=== PATIENT | female | born 1960 | race Caucasian/White ===

== ENCOUNTER 2022-07-29 07:34 | Outpatient (CLI) | payer BC ==
[~2022-07-29] VITALS: Ht 165.1 cm; Wt 84.1 kg
[2022-07-29 09:26] LABS: BILIRUBIN,URINE NEGATIVE (NEGATIVE); CLARITY,URINE CLEAR; COLOR,URINE YELLOW; GLUCOSE, URINE (UA) NEGATIVE (NEGATIVE); KETONES,URINE NEGATIVE (NEGATIVE); LEUKOCYTE ESTERASE ,URINE 1+ (NEGATIVE); NITRITE,URINE NEGATIVE (NEGATIVE); PROTEIN,URINE NEGATIVE (NEGATIVE)
[2022-07-29] MEDS ORDERED: OMEP20CA18 PO (09:31)
[2022-07-29] MEDS ORDERED: APIX5TAB PO (09:31)
[2022-07-29] MEDS ORDERED: CETI10CA PO (09:31)
[2022-07-29] MEDS ORDERED: PSYL0.4C2 PO (09:31)
[2022-07-29] MEDS ORDERED: BACI1CAP6 PO (09:31)
[2022-07-29] MEDS ORDERED: FLEC50TA PO (09:31)
[2022-07-29] MEDS ORDERED: CYCL10TA25 PO (09:31)
[2022-07-29] MEDS ORDERED: MELA10TA20 PO (09:31)
[2022-07-29] MEDS ORDERED: ACET-168 PO (09:34)
[2022-07-29 09:52] LABS: BACTERIA,URINE FEW /HPF; RBC,URINE RARE /HPF; WBC,URINE RARE /HPF
[2022-07-29] MEDS ORDERED: RT-ALBUINH INH (09:54)
[2022-07-29 09:59] VITALS: BP 135/75
[2022-07-29 10:42] LABS: BASOPHILS % (AUTO) 1 % (0-10); EOSINOPHILS # (AUTO) 0.1 10^3/uL (0.0-0.3); EOSINOPHILS % (AUTO) 1 % (0-10); HEMATOCRIT 41 % (35-52); HEMOGLOBIN 13.8 g/dL (11.5-16.0); LYMPHOCYTES # (AUTO) 2.1 10^3/uL (1.0-4.0); LYMPHOCYTES % (AUTO) 32 % (12-44); MEAN CORPUSCULAR HEMOGLOBIN 30 pg (25-34); MEAN CORPUSCULAR HGB CONC 34 g/dL (32-36); MEAN CORPUSCULAR VOLUME 89 fL (80-99); MEAN PLATELET VOLUME 9.6 fL (9.0-12.2); MONOCYTES # (AUTO) 0.5 10^3/uL (0.0-1.0); MONOCYTES % (AUTO) 7 % (0-12); NEUTROPHILS # (AUTO) 3.8 10^3/uL (1.8-7.8); NEUTROPHILS % (AUTO) 58 % (42-75); PLATELET COUNT 308 10^3/uL (130-400); WHITE BLOOD COUNT 6.5 10^3/uL (4.3-11.0)
[2022-07-29 10:52] LABS: ALBUMIN 4.3 GM/DL (3.2-4.5)
[2022-07-29 10:53] LABS: INR 1.1 (0.8-1.4); POTASSIUM 3.9 MMOL/L (3.6-5.0); PROTHROMBIN TIME PATIENT 14.2 SEC (12.2-14.7)
[2022-07-29 10:54] LABS: CALCIUM 9.7 MG/DL (8.5-10.1)
[2022-07-29 10:55] LABS: TOTAL PROTEIN 7.4 GM/DL (6.4-8.2)
[2022-07-29 10:57] LABS: BILIRUBIN,TOTAL 0.5 MG/DL (0.1-1.0)
[2022-07-29 10:59] LABS: CREATININE SERUM 0.75 MG/DL (0.60-1.30)
[2022-07-29 11:14] LABS: ERYTHROCYTE SEDIMENTATION RATE 44 MM/HR (0-30)
[2022-07-29] MEDS ORDERED: GABA300S3 PO (12:56)
[2022-07-29] MEDS ORDERED: CELE400C PO (12:56)
--- NOTE | 2022-07-29 15:56 | Physical Therapy Pre-Op Eval ---
PT Pre-Surgical Assessment Type of Surgery Type of Surgery: Prior Level of Function Current Living Status: Spouse Locomotion (Upon Admit): Independent Distance: Unlimited PLOF DME: None Subjective Subjective Patient sitting in chair upon PT arrival, agreeable to assessment. Home: Apartment Current Living Status: Spouse Entry Into Home: Stairs Without Railing Steps Into Home: 2 Steps Accessories: No Railing Motor Control Motor Control: Motor Control WNL ROM Left knee flexion 110 degrees, extension 10 degrees from neutral Strength Strength: WFL Transfers Transfers (B, C, W/C) (FIM): 6 Gait Gait (FIM): 6 Gait Distance (FIM): 300 Distance: 300 Gait Assistive Device: None Right Lower Extremity: Right Full Weight Bearing Left Lower Extremity: Left Full Weight Bearing Treatment Rendered Treatment: Patient instructed in assistive device, supported ambulation. Patient instructed in and given written program of ROM and strengthening exercises to be preformed post-op. Patient instructed in movement precautions where applicable. Patient demonstrates understandings of post-operative therapy protocol including gait pattern and exercise program. Pre-operative instruction completed; await physical therapy orders after surgery. Treatment Goal Met: Yes Assessment Goals Acheived: I Ambulation w/ FWW, Understands P-op Precaut, I Post-op Exercises Charges/GCodes Time In: 930 Time Out: 942 Total Billed Treatment Time: 12 Total Billed Treatment Visit, ADAM NAGY PT July 29, 2022 15:56
--- NOTE | 2022-07-29 18:31 | Diagnostic Imaging Report ---
INDICATION: Preop for left knee surgery PA and lateral chest obtained at 1037 a.m. Heart and mediastinal silhouette are normal in appearance. The lungs are clear. There is no pneumothorax or pleural fluid. IMPRESSION: Negative chest. Dictated by: Dictated on workstation # [id number]
== END 2022-07-29 12:58 ==
LOC: PREOP 07:34
PROVIDERS: ATTEND Orthopaedic Surgery
DX: Z01.818 Encounter for other preprocedural examination (principal); M17.12 Unilateral primary osteoarthritis, left knee
CPT/HCPCS: 36415; 71046; 80053; 81000; 82308; 85025; 85610; 85652; 86850; 86900; 86901; 87081; 87088; 93005

== ENCOUNTER 2022-08-05 06:11 | Inpatient (IN) | payer BC ==
--- NOTE | 2022-07-29 08:50 | HISTORY AND PHYSICAL ---
REASON FOR ADMISSION: Left total knee arthroplasty. The patient will require regular inpatient admission due to pain management, need for physical therapy and comorbidities. HISTORY: The patient is a 62-year-old female with longstanding progressive left knee pain. Radiographs reveal severe medial and patellofemoral arthrosis. She reports no improvement with injections, which she has undergone over the last several years. She reports pain on the medial aspect of her knee. She reports activity limitations because of this has elected to proceed with surgical intervention. REVIEW OF SYSTEMS: No chest pain, no shortness of breath, no dysuria. PAST MEDICAL HISTORY: Asthma, kidney stone, AFib. PAST SURGICAL HISTORY: Cholecystectomy, tonsillectomy, bladder sling, right foot, left knee. FAMILY HISTORY: Significant for diabetes, breast cancer. PRIMARY CARE PROVIDER: Dr. Mario in [place]. MEDICATIONS: Prilosec, flecainide, cyclobenzaprine, Colestid, Eliquis, melatonin, Estrace, Flomax. ALLERGIES: NO KNOWN DRUG ALLERGIES. SOCIAL HISTORY: The patient denies alcohol and tobacco use. PHYSICAL EXAMINATION: GENERAL: The patient is well-developed, well-nourished, in no acute distress. HEENT: Normocephalic, atraumatic. Pupils equal, round, reactive to light. Oropharynx is clear. NECK: Supple. No lymphadenopathy. LUNGS: Clear to auscultation bilaterally. HEART: Regular rate and rhythm. ABDOMEN: Soft, nontender, nondistended. EXTREMITIES: The left knee demonstrates varus alignment. She is tender along her medial femoral epicondyle. She has pain medially with Marilee's. Range of motion of 0/2/125. She is ligamentously stable in all planes. IMPRESSION: Severe left knee osteoarthritis, unresponsive to conservative measures. PLAN: Left total knee arthroplasty. The risks, benefits, options, ramifications and recovery have been discussed at length with the patient. She understands and wishes to proceed. Job ID: [id number] DocumentID: [id number] Dictated Date: 07/17/2022 12:40:41 Sewing Machine Assembler Date: 07/17/2022 14:56:00 Dictated By: JOIE MURRAY MD
[~2022-08-05] VITALS: Ht 165.1 cm; Wt 106.0 kg
[2022-08-05] VITALS (12 sets, daily range): BP systolic 94–144; BP diastolic 44–80
[~2022-08-05 06:11] MED LIST: ACET-168 PO; APIX5TAB PO; BACI1CAP6 PO; CELE400C PO; CETI10CA PO; CYCL10TA25 PO; FLEC50TA PO; GABA300S3 PO; MELA10TA20 PO; OMEP20CA18 PO; PSYL0.4C2 PO; RT-ALBUINH INH
[2022-08-05] MEDS ORDERED: CEFUROXIME INJECTION 1,500 MG in NS (IVPB) 50 ML IV ONE (06:15)
--- OUTSIDE RECORDS SUMMARY | 2022-08-05 06:16 | XMS REPORT ---
Author Author Gabbi Linares [facility] Address [address] [place], [place] [id number] Care Team Providers Care Naturalization Examiner Name Role Phone Deana Linares PCP Unavailable Allergies and Adverse Reactions Name Reaction Notes No known drug allergy Plan of Treatment Not available. Medications Active Name Start Date Estimated Completion Date SIG Co mments flecainide 50 mg oral tablet sowmya e 1 tablet (50 mg) by oral route every 12 hours omeprazole 20 mg oral capsule,delayed release(DR/EC) take 1 capsule (20 mg) by oral route once daily before a meal Eliquis 5 mg oral tablet take 1 tablet (5 mg) by oral route 2 times per day cyclobenzaprine 10 mg oral tablet 02/18/2021 Prilosec OTC 20 mg tablet,delayed release take 1 tablet by oral route daily for 30 days amoxicillin oral tablet 500 mg 07/18/2022 07/28/2022 t chin 1 tablet (500 mg) by oral route every 12 hours for 10 days Name Start Date Expiration Date SIG Comments colestipol 1 gram oral tablet ta ke 1 tablet (1 gram) by oral route 2 times per day swallowing whole with any liquid. Do not crush, chew and/or divide. amoxicillin 500 mg oral capsule 01/18/2019 01/28/2019 take 1 capsule (500 mg) by oral route 3 times per day for 10 days Augmentin 875-125 mg oral tablet 01/17/2021 01/24/2021 take 1 tablet by oral route every 12 hours for 7 days amoxicillin-pot clavulanate oral tablet 875-125 mg 07/03/2021 07/17/2021 take 1 tablet by oral route every 12 hours for 7 days azithromycin 250 mg tablet 08/29/2021 09/03/2021 take 2 tablets (500 mg) by oral route once daily for 1 day then 1 tablet (250 mg) by oral route once daily for 4 days albuterol sulfate HFA 90 mcg/actuation aerosol inhaler 08/29/2021 09/05/2021 inhale 1 - 2 puffs (90 - 180 mcg) by inhalation route every 4-6 hours as needed for 7 days Flomax oral capsule,extended release 24hr 0.4 mg 03/24/2022 04/23/2022 take 1 capsule (0.4 mg) by oral route once daily 1/2 hour following the same meal each day for 30 days Discontinued Name Start Date Discontinued Date SIG Comments cyclobenzaprine 10 mg oral tablet 02/06/2019 08/20/2020 take 1 tablet (10 mg) by oral route 3 times per day PRN for spasms amoxicillin oral capsule 500 mg 01/04/2022 01/14/2022 take 2 capsules by oral route every 12 hours for 10 days floxuridine eye drop 0.5 gram injection recon soln 07/18/2022 4 drops daily bilateral eyes hydrocodone-acetaminophen oral tablet 5-325 mg 03/24/2022 take 1 tablet by oral route every 4-6 hours as needed for pain Problem List Description Status Onset Afib Active Acid reflux Active Muscle Spasm Active Asthma Active Vital Signs Date Time BP-Sys(mm[Hg] BP-Sarita(mm[Hg]) HR(bpm) RR(rpm) Temp WT HT HC BMI BSA BMI Percentile O2 Sat(%) 07/18/2022 8:15:00 AM 130 mm[Hg] 70 mm[Hg] 86 {beats}/min 16 rpm 98.2 F 191.25 lbs 65 in 31.8253 kg/m2 1.9946 m2 97 % 03/27/2022 6:20:00 PM 152 mm[Hg] 98 mm[Hg] 78 {beats}/min 18 rpm 97.9 F 197.25 lbs 65 in 32.82 kg/m2 2.03 m2 99 % 03/24/2022 4:11:00 PM 133 mm[Hg] 71 mm[Hg] 72 {beats}/min 16 rpm 97.9 F 196.125 lbs 65 in 32.64 kg/m2 2.02 m2 98 % 01/14/2022 5:07:00 PM 132 mm[Hg] 74 mm[Hg] 75 {beats}/min 20 rpm 98.2 F 186 lbs 65 in 30.9517 kg/m2 1.967 m2 97 % 01/04/2022 1:04:00 PM 128 mm[Hg] 66 mm[Hg] 92 {beats}/min 16 rpm 98.1 F 186.375 lbs 65 in 31.01 kg/m2 1.97 m2 97 % 08/29/2021 10:30:00 AM 132 mm[Hg] 80 mm[Hg] 68 {beats}/min 98.2 F 187.375 lbs 65 in 31.1805 kg/m2 1.9743 m2 97 % 06/29/2021 2:31:00 PM 120 mm[Hg] 80 mm[Hg] 81 {beats}/min 18 rpm 98.2 F 195 lbs 65 in 32.45 kg/m2 2.01 m2 95 % 01/09/2021 5:32:00 PM 128 mm[Hg] 70 mm[Hg] 82 {beats}/min 18 rpm 97.9 F 188 lbs 65 in 31.2845 kg/m2 1.9776 m2 98 % 08/20/2020 2:48:00 PM 122 mm[Hg] 80 mm[Hg] 98 {beats}/min 18 rpm 97.9 F 190 lbs 65 in 31.62 kg/m2 1.99 m2 97 % 01/18/2019 5:33:00 PM 138 mm[Hg] 82 mm[Hg] 88 {beats}/min 18 rpm 98.8 F 205 lbs 65 in 34.1134 kg/m2 2.0651 m2 97 % Social History Name Description Comments Tobacco Never smoker 08/20/2020 - Vapes Never History of Procedures Date Ordered Description Order Status 01/18/2019 6:16 PM INFLUENZA ASSAY W/OPTIC Reviewed 01/18/2019 12:00 AM Decadron 4mg Injection Reviewed 01/18/2019 12:00 AM Depo-Medrol 40mg Injection Reviewed 01/18/2019 12:00 AM THER/PROPH/DIAG INJ SC/IM Reviewed 08/20/2020 12:00 AM Decadron 4mg Injection Reviewed 08/20/2020 12:00 AM Depo-Medrol 40mg Injection Reviewed 08/20/2020 12:00 AM THER/PROPH/DIAG INJ SC/IM Reviewed 01/09/2021 12:00 AM THER/PROPH/DIAG INJ SC/IM Reviewed 01/09/2021 12:00 AM Depo-Medrol 40mg Injection Reviewed 01/09/2021 12:00 AM Decadron 4mg Injection Reviewed 06/29/2021 12:00 AM Decadron 4mg Injection Reviewed 06/29/2021 12:00 AM Depo-Medrol 40mg Injection Reviewed 06/29/2021 12:00 AM THER/PROPH/DIAG INJ SC/IM Reviewed 08/29/2021 12:00 AM Decadron 4mg Injection Reviewed 08/29/2021 12:00 AM Depo-Medrol 40mg Injection Reviewed 08/29/2021 12:00 AM THER/PROPH/DIAG INJ SC/IM Reviewed 03/24/2022 4:22 PM URINALYSIS AUTO W/O SCOPE Reviewed 03/24/2022 12:00 AM X-RAY EXAM SERIES ABDOMEN Returned 03/27/2022 12:[address] ABD & PELVIS W/O CONTRAST Returned 03/27/2022 7:19 PM URINALYSIS AUTO W/O SCOPE Reviewed 07/18/2022 8:22 AM STREP A ASSAY W/OPTIC Reviewed Results Summary Date and Description Results 01/18/2019 6:16 PM Influenza A neg Influenza B neg 06/29/2021 2:31 PM Weight For Length Percentile 0.1 {percentile}Body Mass Index Percentile for Age and Sex 0.1 {percentile} 03/24/2022 4:22 PM Clarity Ur light yellow Urin e-Color light yellow Glucose Ur- sCnc neg Bilirub Ur Ql neg Ketones Ur Ql Strip neg Sp Gr Ur Qn 1.015 Hgb Ur Ql Strip large pH Ur-LsCnc 7.0 Prot Ur Ql Strip neg Urobilinogen Ur-mCnc 0.2 E.U./dL Nitrite Ur Ql Strip neg WBC # Ur neg 03/27/2022 7:19 PM Clarity Ur clear Urine-Color yellow Glucose Ur-sCnc neg Bilirub Ur Ql neg Ketones Ur Ql Strip neg Sp Gr Ur Qn 1.010 Hgb Ur Ql Strip large pH Ur-LsCnc 6.0 Prot Ur Ql Strip neg Urobilinogen Ur-mCnc 0.2 Nitrite Ur Ql Strip neg WBC # Ur neg 07/18/2022 8:32 AM STREPTOCOCCUS, GROUP A CULTU RE detected History Of Immunizations Not available. History of Past Illness Name Date of Onset Comments Afib Acid reflux Muscle Spasm Asthma Cervical adenopathy Jan 18 2019 5:35PM Acute frontal sinusitis Jan 18 2019 5:35PM Sinus congestion Jan 18 2019 5:35PM Allergic rhinitis Aug 20 2020 2:52PM Seasonal allergies Aug 20 2020 2:52PM Sinusitis Jan 09 2021 5:46PM Seasonal allergies Jan 09 2021 5:33PM Acute maxillary sinusitis Jan 17 2021 2:58PM Seasonal allergies Jun 29 2021 2:33PM Rhinitis, Allergic Jun 29 2021 2:33PM Sinusitis Jul 03 2021 2:54PM Allergic rhinitis Jul 03 2021 2:54PM Sinusitis Aug 29 2021 10:32AM Upper Respiratory Infections Aug 29 2021 10:32AM Otogenic otalgia of left ear Jan 04 2022 1:06PM Left otitis media Jan 04 2022 1:06PM Middle ear effusion, left Jan 14 2022 5:09PM Left flank pain Mar 24 2022 4:18PM Hematuria Mar 24 2022 4:18PM Kidney stone Mar 24 2022 4:18PM Hematuria Mar 27 2022 7:10PM Flank pain Mar 27 2022 7:10PM Hematuria Mar 27 2022 6:22PM Flank pain Mar 27 2022 6:22PM Strep throat Jul 18 2022 8:22AM Payers Insurance Name Company Name Plan Name Plan Number Policy Number Attila cy Group Number Start Date [employer] [id number] N/ A History of Encounters Visit Date Visit Type Provider 07/18/2022 Office visit Deana Linares TOLL REPAIRER CENTRAL OFFICE 03/27/2022 Office visit Kelley MAY RN 03/24/2022 Office visit Rahel Elizabeth PRN 01/14/2022 Office visit Preethi William TOLL REPAIRER CENTRAL OFFICE 01/04/2022 Office visit Kelley MAY RN 08/29/2021 Office visit Kelley MAY RN 07/03/2021 Office visit Geneva Spangler TOLL REPAIRER CENTRAL OFFICE 06/29/2021 Office visit Kelley MAY RN 01/17/2021 Office visit Geneva Spangler TOLL REPAIRER CENTRAL OFFICE 01/09/2021 Office visit Casa Gomez PA-C 08/20/2020 Office visit Rahel Elizabeth PRN 01/18/2019 Office visit Geneva Spangler TOLL REPAIRER CENTRAL OFFICE
[2022-08-05] MEDS: LACTATED RINGERS 1,000 ML IV PRN ×2 (06:51→09:27)
[2022-08-05] MEDS ORDERED: ONDANSETRON 4 MG/2 ML (SDV) Z0FRAN ONE (06:54)
[2022-08-05] MEDS ORDERED: proPOfol 200 MG/20 ML (DIPRIVAN) VIAL IV ONE (06:54)
[2022-08-05] MEDS ORDERED: LIDOCAINE PF 2% 5 ML (XYLOCAINE) VIAL ONE (06:54)
[2022-08-05] MEDS ORDERED: MIDAZOLAM 2 MG/2 ML (VERSED) VIAL ONE (06:54)
[2022-08-05] MEDS ORDERED: fentaNYL INJ 100 MCG/2 ML AMP ONE (06:54)
[2022-08-05] MEDS ORDERED: SEVOFLURANE (ULTANE) 15 ML INHAL SOLN ONE (06:54)
[2022-08-05] MEDS ORDERED: CEFUROXIME 1.5 GM/15 ML (ZINACEF) VIAL ONE (06:56)
[2022-08-05] MEDS ORDERED: NS (IVPB) 50 ML ONE (06:57)
[2022-08-05] MEDS ORDERED: diphenhydrAMINE 50 MG/ML INJ (BENADRYL) IVP PRN (07:00)
[2022-08-05] MEDS ORDERED: NALOXONE 0.4 MG/ML 1 ML (NARCAN) VIAL IV PRN (07:00)
[2022-08-05] MEDS ORDERED: ONDANSETRON 4 MG/2 ML (SDV) Z0FRAN IVP PRN ×2 (07:00→09:30)
--- NOTE | 2022-08-05 07:34 | Progress Note-Post Operative ---
Post-Operative Progess Note Surgeon (s)/Firebrick Layer (s) Surgeon JOIE MURRAY MD Firebrick Layer: Jose M Lozano Pre-Operative Diagnosis left knee primary ostearthritis Post-Operative Diagnosis left knee primary ostearthritis Procedure & Operative Findings Date of Procedure 08/05/22 Procedure Performed/Findings left total knee arthroplasty Anesthesia Type spinal Estimated Blood Loss Estimated blood loss (mL): minimal Specimens/Packing Specimens Removed none Packing: none JOIE MURRAY MD Aug 05, 2022 07:34
--- NOTE | 2022-08-05 07:34 | Progress Note-Pre Operative ---
Pre-Operative Progress Note Date of Available H&P: July 29, 2022 Date H&P Reviewed: Aug 05, 2022 Time H&P Reviewed: 07:11 Changes from last HP none Pre-Operative Diagnosis: left knee primary ostearthritis JOIE MURRAY MD Aug 05, 2022 07:34
--- NOTE | 2022-08-05 07:37 | D/C HH Face to Face Order ---
D/C Face to Face Orders Reconcile Patient Problems Problems Reviewed?: Yes Instructions for Patient Via Fern Gloss[employer], Patient Instructions/FollowUp: three weeks Physician to follow Patient: three weeks Discharge Diet for Home: Regular Diet Patient Data-Allergies,Ht & Wt Patient Allergies: Coded Allergies: No Known Drug Allergies (Unverified , 08/05/22) Home Health Need/Face to Face Date of Face to Face: Aug 05, 2022 Clinical Findings: Muscle weakness, Pain with ambulation, Unsteady gait I have seen Pt [id number]: Yes Discharged To: Home Diagnosis/Conditions: left total knee arthroplasty Patient is Homebound due to: Pain w/ambulation Homebound Status Due to the above stated illness, injury or surgical procedure (medical condition or diagnosis) and associated clinical findings, the patient is homebound because of his/her inability to leave home except with aid of a supportive device and/or person AND leaving the home requires a considerable and taxing effort or is medically contraindicated. Pt req the following assistanc: [facility] Nursing Orders Home Health Services Order: Physical Therapy-Evaluate & Treat DC left knee leeanna and apply steri strips 08/19/22 Home Health Infusion Therapy Line Start Date: Aug 05, 2022 Therapy Orders Therapy Orders: Physical Therapy, PT to assess for OT Therapy Specific Orders: Eval assistive deivces, Teach enviro modificatio ns/safety, Gait training, Increase strength/endurance, Provider maintenance therapy, Restore ROM Certify Stmt I certify that this patient is under my care and that I, a nurse practitioner or a physician; a data entry assistant working with me, had a face to face encounter that - meets the physician face to face encounter requirements with this patient as dated. JOIE MURRAY MD Aug 05, 2022 07:36
[2022-08-05] MEDS ORDERED: TRANEXAMIC ACID 100 MG/ML 10 ML INJECTION ONE (07:47)
[2022-08-05] MEDS ORDERED: INTRA-ARTICULAR IU ONE ×5 (08:00)
[2022-08-05] MEDS ORDERED: BUPIVACAINE 0.5% 30 ML (SENSORCAINE) VIAL ONE (08:00)
[2022-08-05] MEDS ORDERED: PROPOFOL INJECTION 100 ML IV ONE (08:01)
[2022-08-05] MEDS ORDERED: MEPERIDINE (DEMEROL) INJ 50 MG/ML IVP ONE (09:30)
[2022-08-05] MEDS ORDERED: fentaNYL INJ 100 MCG/2 ML AMP IVP ONE (09:30)
[2022-08-05] MEDS ORDERED: morphine INJ 10 MG/ML 1ML (SYR OR VIAL) IVP ONE (09:30)
--- NOTE | 2022-08-05 10:29 | OPERATIVE REPORT ---
DATE OF SERVICE: 08/05/2022 PREOPERATIVE DIAGNOSIS: Left knee primary osteoarthritis. POSTOPERATIVE DIAGNOSIS: Left knee primary osteoarthritis. PROCEDURE: Left total knee arthroplasty. SURGEON: Cali Murray MD RN CLINICAL COORDINATOR: Jose M Lozano, who assisted throughout the procedure and closed the incision. ANESTHESIA: Spinal by Jose M , MANUFACTURING INTERN. TOURNIQUET TIME: Approximately 58 minutes at 300 mmHg. ESTIMATED BLOOD LOSS: Minimal. DRAINS: None. COMPLICATIONS: None. POSTOPERATIVE PLAN: Routine total knee arthroplasty protocol. The patient was transported to the recovery room awake and in stable condition. MATERIALS: MicroPort cemented size 4 femur, cemented size 4 tibia with 10 mm insert and cemented size 29 patellar button. STATEMENT OF MEDICAL NECESSITY: The patient is a 62-year-old female with longstanding progressive left knee pain. Radiographs revealed severe medial and patellofemoral arthrosis. She has undergone treatment with multiple injections as well as arthroscopy without relief. Due to functional impairment and failure to improve with conservative measures, the patient elected to proceed with surgical intervention. DESCRIPTION OF PROCEDURE: After risks and benefits of the procedure were discussed and questions were answered and informed consent was signed and placed on the chart, the operative site was confirmed in the preoperative holding area initialed by surgeon. The patient was then transported to the operating room and after adequate levels of regional anesthetic were obtained, a timeout was called, confirming the operative site. The left lower extremity was prepped and draped in the usual sterile fashion with the leg elevated and the knee flexed and tourniquet inflated to 300 mmHg. A standard anterior approach was utilized. Hemostasis was obtained with cautery. A medial parapatellar arthrotomy was performed, leaving 1 cm cuff on the patella for later reattachment. A portion of the fat pad was resected. Subperiosteal release was carefully performed on the proximal medial tibia, being careful stay on the bony surface. The ACL was resected. Intramedullary guide was passed into the femoral canal. The distal cutting block was placed. Distal cut was made. The femur was sized to a size 4. The 4 cutting block was placed parallel to the epicondylar axis and cuts were made from posterior to anterior. Subperiosteal release was then carefully performed on the posterior distal femur, being careful to stay on the bony surface and intramedullary guide was then passed into the tibia. The cutting block was placed. The drop frannie transected the intermalleolar axis and the cut was made. This was sized to a size 4. The 4 base was placed and the drop frannie transected the intermalleolar axis. This was prepared with the drill and keel punch. The femoral trial was placed and trochlear cut was made. A 10 mm insert was placed. The patella was then prepared by resecting 10 mm off the undersurface. The peg guide was placed and peg holes were drilled. The 29 trial was placed and the knee was taken through range of motion. Full extension was easily obtained under 20 degrees of flexion with gravity was easily obtained. There was no anterior/posterior or medial/lateral laxity in flexion or extension, the patella tracked well. The trials were removed. The joint was irrigated with pulse lavage. Periarticular block was placed in the posterior capsule, medial and lateral retinaculum, extensor mechanism and subcutaneous tissues. The bone ends were irrigated. The tibial baseplate was cemented into position. Excessive cement was removed. The superior surface was irrigated and dried and the polyethylene insert was placed. The distal femur was irrigated and dried and the femoral prosthesis was cemented into position. Excessive cement was removed. The knee was brought out into full extension until cement had cured. The undersurface of the patella was irrigated and dried. The patellar button was cemented into position. Excessive cement was removed. The knee was held in full extension until cement had cured. Once the cement had cured, the knee was taken through range of motion. Full extension was easily obtained under 20 degrees of flexion with gravity was easily obtained. There was no anterior/posterior or medial/lateral laxity in flexion or extension. The patella tracked well. The joint was further irrigated with pulse lavage. The arthrotomy was closed with #2 Tevdek in [id number] interrupted fashion. Knee was flexed and the repair was stable. The subcutaneous tissues were irrigated using a total of 6 liters throughout the procedure. 0 Vicryl was used for the deep subcutaneous layer, 2-0 Vicryl for the superficial subcutaneous layer, leeanna used on the skin and soft dressing was applied. The tourniquet was deflated and the patient was transferred to the recovery room awake and in stable condition. Job ID: [id number] DocumentID: [id number] Dictated Date: 08/05/2022 09:10:36 Senior Genetic Counselor Date: 08/05/2022 10:27:00 Dictated By: CALI MURRAY MD
--- NOTE | 2022-08-05 10:42 | Diagnostic Imaging Report ---
INDICATION: Postop left knee arthroplasty. AP and lateral views left knee are obtained 09:06 a.m. FINDINGS: Left knee prosthesis appears in good alignment with no sign of fracture or device loosening. There is no unexpected radiopaque foreign body. IMPRESSION: Well aligned left knee prosthesis with no acute abnormality. Dictated by: Dictated on workstation # [id number]
[2022-08-05] MEDS ORDERED: polyethylene glycoL POWDER 17 GM (MIRALAX) PACK PO PRN (11:00)
[2022-08-05] MEDS ORDERED: CALCIUM CARBONATE 500 MG (TUMS) TAB.CHEW PO PRN (11:00)
[2022-08-05] MEDS: SENNA W/DOCUSATE (SENOKOT S) TABLET PO SCH ×2 (11:01→20:24)
[2022-08-05] MEDS: NS IV 1000 ML 1,000 ML IV SCH ×2 (11:01→19:38)
--- NOTE | 2022-08-05 11:29 | Progress Note ---
Standard Progress Note Progress Notes/Assess & Plan Date Seen by a Provider: Aug 05, 2022 Time Seen by a Provider: 09:30 Progress/Assessment & Plan post op check spinal in effect radiographs--HW well positioned without fracture LLE--2 plus DP pulse with brisk cap refill s/p LTKA mobilize when able JOIE MURRAY MD Aug 05, 2022 11:29
--- NOTE | 2022-08-05 13:49 | Physical Therapy Evaluation ---
PT Evaluation-General Medical Diagnosis Admission Date Aug 05, 2022 at 06:11 Medical Diagnosis: LTKA Onset Date: Aug 05, 2022 Therapy Diagnosis Therapy Diagnosis: Gait deficit, strength deficit Precautions Precautions/Isolations: Fall Prevention, Standard Precautions Weight Bear Status Right Lower Extremity: Right Full Weight Bearing Left Lower Extremity: Left Weight Bearing/Tolerated Referral Physician: Dr. Daley Reason for Referral: Evaluation/Treatment Social History Home: Single Level Current Living Status: Spouse Entry Into Home: Stairs With Railing PT Steps Into Home: 2 Prior Prior Level of Function SCALE: Activities may be completed with or without assistive devices. 9-Wczxfmsbix-xgwewdw completes the activity by him/herself with no assistance from a helper. 5-Set-up or Clean-up Assistance-helper sets up or cleans up; patient completes activity. [place]alt assists only prior to or following the activity. 4-Supervision or Touching Assistance-helper provides verbal cues and/or touching/steadying and/or contact guard assistance as patient completes activity. Assistance may be provided throughout the activity or intermittently. 3-Partial/Moderate Assistance-helper does LESS THAN HALF the effort. Cobalt lifts, holds or supports trunk or limbs, but provides less than half the effort. 2-Substantial/Maximal Assistance-helper does MORE THAN HALF the effort. [place] lifts or holds trunk or limbs and provides more than half the effort. 8-Yszsrmnca-kdzmpe does ALL the effort. Patient does none of the effort to complete the activity. Or, the assistance of 2 or more helpers is required for the patient to complete the activity. If activity was not attempted, code reason: 7-Patient Refused. 9-Not Applicable-not attempted and the patient did not perform the activity before the current illness, exacerbation or injury. 10-Not Attempted due to Environmental Limitations-(lack of equipment, weather restraints, etc.). 88-Not Attempted due to Medical Conditions or Safety Concerns. Bed Mobility: 6 Transfers (B,C,W/C): 6 Gait: 6 Stairs: 6 Indoor Mobility (Ambulation): Independent Stairs: Independent Prior Devices Use: None PT Evaluation-Current Subjective Patient lying supine in bed upon PT arrival, in the room, agreeable to treatment. Patient rates pain at 0/10 currently. Objective Patient Orientation: Person, Place, Time, Situation Attachments: Polar Pack, IV ROM/Strength ROM Lower Extremities Left knee Flexion 100 degrees sitting ni chair; right knee extension 5 degrees from neutral sitting in chair. All other BLEs WFLs Strength Lower Extremities Left knee flexion and extension 3/5; all other left LE planes 4/5. Right LE 5/5 all planes. Sensory Vision: Functional Hearing: Functional Sensation Right Lower Extremit: Intact Sensation Left Lower Extremity: Impaired Transfers Roll Left to Right (QC): 4 Sit to Lying (QC): 4 Lying to Sitting/Side of Bed(Q: 4 Sit to Stand (QC): 4 Chair/Yyn-ac-Likoe Xfer(QC): 4 Gait Does the Patient Walk?: Yes Mode of Locomotion: Walk Anticipated Mode of Locomotion: Walk Walk 10 feet (QC): 4 Distance: 25' Gait Assistive Device: FWW Balance Sitting Static: Normal Sitting Dynamic: Normal Standing Static: Good Standing Dynamic: Good Assessment/Needs Patient tolerated treatment well. Patient performs all bed mobility and transfers with SBA. Patient ambulates 25 feet with FWW, with SBA and verbal cues for safety, progression, balance and gait pattern. Patient in chair post treatment with all needs met, nursing notified, call light in hand and in the room. Rehab Potential: Good Equipment Needs FWW PT Custodial Goals Custodial Goals PT Plating Tank Operator Apprentice Goals Time Frame: Aug 28, 2022 Roll Left & Right (QC): 6 Sit to Lying (QC): 6 Lying-Sitting on Side/Bed(QC): 6 Sit to Stand (QC): 6 Chair/Iim-ok-Wfaji Xfer(QC): 6 Toilet Transfer (QC): 6 Does the Patient Walk: Yes Walk 10 feet (QC): 6 Walk 50ft with 2 Turns (QC): 6 Walk 150 ft (QC): 6 1 Step (curb) (QC): 4 4 Steps (QC): 4 12 Steps (QC): 4 PT Plan Problem List Problem List: Activity Tolerance, Functional Strength, Safety, Balance, Gait, Transfer, Bed Mobility, ROM Treatment/Plan Treatment Plan: Continue Plan of Care Treatment Plan: Bed Mobility, Education, Functional Activity Terrie, Functional Strength, Group Therapy, Gait, Safety, Therapeutic Exercise, Transfers Treatment Duration: Aug 28, 2022 Frequency: 11 times per week Estimated Hrs Per Day: .25 hour per day Safety Risks/Education Patient Education: Gait Training, Transfer Techniques Teaching Recipient: Patient Teaching Methods: Demonstration, Discussion Response to Teaching: Verbalize Understanding, Return Demonstration Time Time In: 1306 Time Out: 1328 DATE: Aug 05, 2022 Total Billed Treatment Time: 22 Total Billed Treatment Visit, ADAM HUERTA PT Aug 05, 2022 13:49
[2022-08-05] MEDS ORDERED: GABA300C PO (14:43)
[2022-08-05] MEDS ORDERED: FLEC50TA PO (14:43)
[2022-08-05] MEDS ORDERED: L.RH1CAP4 PO (14:43)
[2022-08-05] MEDS: CEFUROXIME INJECTION 750 MG in NS (IVPB) 50 ML IV SCH (15:13)
[2022-08-05] MEDS: oxyCODONE/APAP 5/325MG (PERCOCET 5) TABLET PO PRN ×2 (15:17→20:31)
--- NOTE | 2022-08-05 18:17 | Consultation - Hospitalist ---
HPI History of Present Illness: HPI/Chief Complaint Gabbi Noble is a 62 year old female with PMH AFib, GERD, obesity, osteoarthritis, who presented for a scheduled total knee arthroplasty. She was seen post-operatively. She denies pain. She has no other complaints or concerns at this time. She has a history of AFib. She took her Flecainide this morning. She has not been taking her Eliquis. She is feeling thirsty. She has not been up with therapy yet. Source: patient Exam Limitations: no limitations Date Seen 08/05/22 Attending Physician Vida,Local Physician PCP Admitting Physician: Cali Daley MD Attending Physician: Cali Daley MD Referring Physician Date of Admission Aug 05, 2022 at 06:11 Home Medications & Allergies Home Medications Reviewed patient Home Medication Reconciliation performed by pharmacy medication reconciliations industrial ecology technician and/or nursing. Patients Allergies have been reviewed. Allergies Allergies Coded Allergies No Known Drug Allergies (Unverified08/05/22) Past Znggkue-Bxlead-Naobej Hx Patient Social History Tobacco Use?: No Smoking Status: Never a Smoker Smokeless Tobacco Frequency: Never a User Use of E-Cig and/or Vaping Anatoliy: Never a User Substance use?: No Alcohol Use?: No Pt feels they are or have been: No Immunizations Up To Date Date of Influenza Vaccine: Dec 19, 2021 First/Initial COVID19 Vaccinat: 04/05/20 Second COVID19 Vaccination Juice: 05/03/20 Hepatitis A: Yes Hepatitis B: Yes Date of Pneumonia Vaccine: July 06, 2021 Seasonal Allergies Seasonal Allergies: Yes Current Status Advance Directives: No Advance Directive Location: Home Communicates: Verbally Primary Language: Jordanian Preferred Spoken Language: Jordanian Is interpretation needed?: No Sensory deficits: Vision impairment Additional sensory deficits: glasses Implanted or Applied Medical D: CPAP Past Medical History Surgeries: Adenoidectomy, Gallbladder, Hysterectomy, Orthopedic, Tonsillectomy Asthma, Sleep Apnea Currently Using CPAP: Yes Currently Using BIPAP: No Atrial Fibrillation 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 History: Hysterectomy Sexually Transmitted Disease: No Kidney Stones Gastroesophageal Reflux, Polyps, Ulcer, Gall Bladder Disease, Irritable Bowel Arthritis Tonsilitis Loss of Vision: Denies Hearing Impairment: Denies Skin Blood Disorders: No Adverse Reaction/Blood Tranf: No Family Medical History No Pertinent Family Hx Review of Systems Constitutional: no symptoms reported Respiratory: no symptoms reported Cardiovascular: no symptoms reported Gastrointestinal: no symptoms reported Physical Exam Physical Exam Vital Signs Vital Signs - First Documented 08/05/22 09:00 O2 Flow Rate 2.00 Capillary Refill : Height, Weight, BMI Height: '" Weight: lbs. oz. kg; 38.88 BMI Method: General Appearance: No Apparent Distress, Obese HEENT: PERRL/EOMI, Pharynx Normal Neck: Normal Inspection, Supple Respiratory: Lungs Clear, No Respiratory Distress Cardiovascular: Regular Rate, Rhythm, No Murmur Gastrointestinal: Normal Bowel Sounds, Soft Extremity: Non Tender, No Pedal Edema Neurologic/Psychiatric: Alert, Normal Mood/Affect Skin: Normal Color, Warm/Dry Results Results/Procedures Labs Patient resulted labs reviewed. Imaging: Reviewed Imaging Report Assessment/Plan Assessment and Plan Assess & Plan/Chief Complaint s/p TKA Osteoarthritis Ortho primary, Dr. Daley Pain regimen Bowel regimen PT/OT Incentive spirometry Ambulte as able AFib Flecainide Holding Eliquis GERD PPI DVT prophylaxis: Lovenox Diagnosis/Problems Diagnosis/Problems (1) Osteoarthritis of left knee Status: Acute Qualifiers: Osteoarthritis type: primary Qualified Codes: M17.12 - Unilateral primary osteoarthritis, left knee (2) S/P total knee arthroplasty Status: Acute Qualifiers: Laterality: left Qualified Codes: Z96.652 - Presence of left artificial knee joint (3) Afib Status: Chronic (4) GERD (gastroesophageal reflux disease) Status: Chronic (5) Obesity Status: Chronic PAPI BELLO MD Aug 05, 2022 18:17
[2022-08-05] MEDS: DOCUSATE SODIUM 100 MG (COLACE) CAP PO SCH (20:24)
[2022-08-05] MEDS: MELATONIN 10 MG TABLET PO SCH (20:24)
[2022-08-05] MEDS: GABAPENTIN 300 MG (NEURONTIN) CAP PO SCH (20:24)
[2022-08-05] MEDS ORDERED: NON-FORMULARY MEDICATION 1 EA EA (Melatonin 10 MG) PO SCH (21:00)
[2022-08-05] MEDS: morphine INJ 4 MG/ML 1 ML (VIAL/SYRINGE) IVP PRN (21:59)
[2022-08-06] MEDS: CEFUROXIME INJECTION 750 MG in NS (IVPB) 50 ML IV SCH (00:20)
[2022-08-06 03:33] VITALS: BP 124/78
[2022-08-06] MEDS: oxyCODONE/APAP 5/325MG (PERCOCET 5) TABLET PO PRN ×4 (03:59→21:04)
[2022-08-06 05:38] LABS: HEMOGLOBIN 10.2 g/dL (11.5-16.0)
[2022-08-06 07:22] VITALS: BP 138/65
--- NOTE | 2022-08-06 08:04 | Progress Note ---
Standard Progress Note Progress Notes/Assess & Plan Date Seen by a Provider: Aug 06, 2022 Time Seen by a Provider: 07:50 Progress/Assessment & Plan post op check spinal in effect radiographs--HW well positioned without fracture LLE--2 plus DP pulse with brisk cap refill s/p LTKA mobilize when able Final Diagnosis no complaints Laboratory Tests Test 08/06/22 05:13 Range/Units Hemoglobin 10.2 L 11.5-16.0 g/dL Hematocrit 30 L 35-52 % Vital Signs Date Time Temp Pulse Resp B/P (MAP) Pulse Ox O2 Delivery O2 Flow Rate FiO2 08/06/22 07:22 36.8 63 18 138/65 (89) 92 Room Air 08/06/22 03:33 36.5 83 16 124/78 (93) 92 Room Air 08/05/22 23:44 36.0 63 16 116/68 (84) 90 Room Air 08/05/22 21:00 Room Air 08/05/22 20:00 36.4 69 18 123/66 (85) 94 Room Air 0.00 08/05/22 19:28 0.00 08/05/22 17:00 36.1 64 18 144/67 (92) 99 Room Air 08/05/22 15:08 Room Air 08/05/22 11:45 35.6 57 17 144/80 (101) 96 Room Air 08/05/22 10:00 36.7 80 17 117/60 (79) 97 Room Air 08/05/22 10:00 99 Room Air 2.00 08/05/22 09:55 Room Air 08/05/22 09:50 36.1 77 117/60 (79) 97 Room Air 08/05/22 09:40 16 94/44 (61) 92 Room Air 08/05/22 09:37 Room Air 08/05/22 09:30 16 95/44 (61) 95 Room Air 08/05/22 09:20 OxyMask 2.00 08/05/22 09:20 16 98/46 (63) 93 OxyMask 2.00 08/05/22 09:10 16 94/46 (62) 97 OxyMask 2.00 08/05/22 09:07 36.1 16 94/46 (62) 99 OxyMask 4.00 08/05/22 09:07 OxyMask 4.00 08/05/22 09:00 96 Room Air 2.00 I & O 08/06/22 07:00 Intake Total 2820 ml Balance 2820 ml LLE--intact DF and PF of toes and ankle intact sensation to light touch throughout no calf tenderness s/p LTKA doing very well if doing well later today ok to JOIE SWARTZ MD Aug 06, 2022 08:04
[2022-08-06] MEDS: FLECAINIDE 100 MG (TAMBOCOR) TAB PO SCH (08:26)
[2022-08-06] MEDS: ASPIRIN E.C. 81 MG (ECOTRIN) TAB PO SCH (08:26)
[2022-08-06] MEDS: SENNA W/DOCUSATE (SENOKOT S) TABLET PO SCH ×2 (08:27→21:03)
[2022-08-06] MEDS: DOCUSATE SODIUM 100 MG (COLACE) CAP PO SCH ×2 (08:28→21:03)
[2022-08-06] MEDS: ENOXAPARIN INJECTION 30 MG/0.3 ML SYR SC SCH ×2 (08:28→21:03)
[2022-08-06] MEDS: PANTOPRAZOLE 20 MG TABLET (PROTONIX) PO SCH (08:28)
--- NOTE | 2022-08-06 08:29 | Physical Therapy Daily Note ---
PT Daily Note-Current Subjective Patient agrees to PT. Pain Numeric Pain Scale: 5-Moderate Pain Location: Left Location Body Site: Knee Pain Description: Acute Section J - Health Conditions 1. Rarely or not at all 2. Occasionally 3. Frequently 4. Almost constantly 8. Unable to answer Pain Effect on Sleep: 1 Pain Interference with Therapy: 1 Pain Interference w/Day-to-Day: 1 Mental Status Patient Orientation: Normal For Age Attachments: IV Transfers SCALE: Activities may be completed with or without assistive devices. 2-Wyabtlnhht-ucdvafh completes the activity by him/herself with no assistance from a helper. 5-Set-up or Clean-up Assistance-helper sets up or cleans up; patient completes activity. [place] assists only prior to or following the activity. 4-Supervision or Touching Assistance-helper provides verbal cues and/or t ouching/steadying and/or contact guard assistance as patient completes activity. Assistance may be provided throughout the activity or intermittently. 3-Partial/Moderate Assistance-helper does LESS THAN HALF the effort. Raymond lifts, holds or supports trunk or limbs, but provides less than half the effort. 2-Substantial/Maximal Assistance-helper does MORE THAN HALF the effort. Raymond lifts or holds trunk or limbs and provides more than half the effort. 8-Faqerufxs-fkklxt does ALL the effort. Patient does none of the effort to complete the activity. Or, the assistance of 2 or more helpers is required for the patient to complete the activity. If activity was not attempted, code reason: 7-Patient Refused. 9-Not Applicable-not attempted and the patient did not perform the activity before the current illness, exacerbation or injury. 10-Not Attempted due to Environmental Limitations-(lack of equipment, weather restraints, etc.). 88-Not Attempted due to Medical Conditions or Safety Concerns. Sit to Stand (QC): 5 Weight Bearing Right Lower Extremity: Right Full Weight Bearing Left Lower Extremity: Left Weight Bearing/Tolerated Gait Training Distance: 200' Walk 10 feet (QC): 5 Walk 50 ft with 2 Turns(QC): 5 Walk 150 ft (QC): 5 Gait Assistive Device: FWW steady, reciprocal pattern Exercises Supine Ex: Ankle pumps, Quad Set, Heel Slides Supine Reps: 15 Seated Therapy Exercises: Long arc quads Seated Reps: 15 Assessment Patient progressing with treatment plan with functional AROM left knee. Plan dismissal to home today or tomorrow per physician with home health. PT Retirement Goals Jewelry Racker Goals PT Retirement Goals Time Frame: Aug 28, 2022 Roll Left & Right (QC): 6 Sit to Lying (QC): 6 Lying-Sitting on Side/Bed(QC): 6 Sit to Stand (QC): 6 Chair/Lim-gt-Sahyx Xfer(QC): 6 Toilet Transfer (QC): 6 Does the Patient Walk: Yes Walk 10 feet (QC): 6 Walk 50ft with 2 Turns (QC): 6 Walk 150 ft (QC): 6 1 Step (curb) (QC): 4 4 Steps (QC): 4 12 Steps (QC): 4 PT Plan Treatment/Plan Treatment Plan: Continue Plan of Care Treatment Plan: Bed Mobility, Education, Functional Activity Terrie, Functional Strength, Group Therapy, Gait, Safety, Therapeutic Exercise, Transfers Treatment Duration: Aug 28, 2022 Frequency: 11 times per week Estimated Hrs Per Day: .25 hour per day Time Time In: 725 Time Out: 750 DATE: Aug 06, 2022 Total Billed Treatment Time: 25 Total Billed Treatment 1 visit EX 14 min GT 11 min BOB MARINELLI PT Aug 06, 2022 08:29
[2022-08-06] MEDS: NS IV 1000 ML 1,000 ML IV SCH ×2 (08:38→21:08)
[2022-08-06] MEDS ORDERED: NON-FORMULARY MEDICATION 1 EA EA (Flecainide Acetate 50 MG) PO SCH (09:00)
[2022-08-06] MEDS ORDERED: OMEPRAZOLE 20 MG (PriLOSEC) CAP NON-FORMULARY PO SCH (09:00)
[2022-08-06] MEDS: morphine INJ 4 MG/ML 1 ML (VIAL/SYRINGE) IVP PRN (09:51)
--- NOTE | 2022-08-06 10:43 | Anesthesia-Regional Post-Op ---
Regional Patient Condition Mental Status: Alert, Oriented x3 Circulation: Same as Pre-Op Headache: Absent Sensation: Full Recovery Motor Block: Absent Post Op Complications Complications None Follow Up Care/Instructions Patient Instructions None needed. Anesthesia/Patient Condition Patient is doing well, no complaints, stable vital signs, no apparent adverse anesthesia problems. No complications reported per nursing. JOSE SQUIRES CRNA Aug 06, 2022 10:43
[2022-08-06 11:18] VITALS: BP 158/73
--- NOTE | 2022-08-06 12:10 | Progress Note - Hospitalist ---
Subjective HPI/CC On Admission Date Seen by Provider: Aug 06, 2022 Time Seen by Provider: 09:35 Gabbi Noble is a 62 year old female with PMH AFib, GERD, obesity, osteoarthritis, who presented for a scheduled total knee arthroplasty. She was seen post-operatively. She denies pain. She has no other complaints or concerns at this time. She has a history of AFib. She took her Flecainide this morning. She has not been taking her Eliquis. She is feeling thirsty. She has not been up with therapy yet. Subjective/Events-last exam She is having some pain. She also reports nausea. Objective Exam Vital Signs Vital Signs Date Time Temp Pulse Resp B/P (MAP) Pulse Ox O2 Delivery O2 Flow Rate FiO2 08/06/22 11:18 36.6 61 18 158/73 (101) 92 Room Air 08/06/22 09:00 0.00 Capillary Refill : General Appearance: No Apparent Distress, Obese Respiratory: Lungs Clear, No Respiratory Distress Cardiovascular: Regular Rate, Rhythm, No Murmur Gastrointestinal: Normal Bowel Sounds, Soft Extremity: No Inflammation, No Pedal Edema Neurologic/Psychiatric: Alert, Normal Mood/Affect Skin: Normal Color, Warm/Dry Results/Procedures Lab Laboratory Tests 08/06/22 05:13 Patient resulted labs reviewed. Imaging: Reviewed Imaging Report Assessment/Plan Assessment and Plan Assess & Plan/Chief Complaint s/p TKA Osteoarthritis Ortho primary, Dr. Daley Pain regimen Bowel regimen PT/OT Incentive spirometry Ambulte as able AFib Flecainide Holding Eliquis, resume when ok with surgery GERD PPI DVT prophylaxis: Lovenox Diagnosis/Problems Diagnosis/Problems (1) Osteoarthritis of left knee Status: Acute Qualifiers: Osteoarthritis type: primary Qualified Codes: M17.12 - Unilateral primary osteoarthritis, left knee (2) S/P total knee arthroplasty Status: Acute Qualifiers: Laterality: left Qualified Codes: Z96.652 - Presence of left artificial knee joint (3) Afib Status: Chronic (4) GERD (gastroesophageal reflux disease) Status: Chronic (5) Obesity Status: Chronic PAPI BELLO MD Aug 06, 2022 12:10
[2022-08-06 13:17] VITALS: BP 158/73
--- NOTE | 2022-08-06 14:45 | Physical Therapy Daily Note ---
PT Daily Note-Current Subjective Patient agrees to PT. Pain Section J - Health Conditions 1. Rarely or not at all 2. Occasionally 3. Frequently 4. Almost constantly 8. Unable to answer Pain Effect on Sleep: 1 Pain Interference with Therapy: 1 Pain Interference w/Day-to-Day: 1 Mental Status Patient Orientation: Normal For Age Attachments: IV Transfers SCALE: Activities may be completed with or without assistive devices. 3-Krhgfrszka-wgigdqo completes the activity by him/herself with no assistance from a helper. 5-Set-up or Clean-up Assistance-helper sets up or cleans up; patient completes activity. [place] assists only prior to or following the activity. 4-Supervision or Touching Assistance-helper provides verbal cues and/or touching/steadying and/or contact guard assistance as patient completes ac tivity. Assistance may be provided throughout the activity or intermittently. 3-Partial/Moderate Assistance-helper does LESS THAN HALF the effort. [place] lifts, holds or supports trunk or limbs, but provides less than half the effort. 2-Substantial/Maximal Assistance-helper does MORE THAN HALF the effort. [place] lifts or holds trunk or limbs and provides more than half the effort. 2-Zjganknmc-oaklnv does ALL the effort. Patient does none of the effort to complete the activity. Or, the assistance of 2 or more helpers is required for the patient to complete the activity. If activity was not attempted, code reason: 7-Patient Refused. 9-Not Applicable-not attempted and the patient did not perform the activity before the current illness, exacerbation or injury. 10-Not Attempted due to Environmental Limitations-(lack of equipment, weather restraints, etc.). 88-Not Attempted due to Medical Conditions or Safety Concerns. Lying to Sitting/Side of Bed(Q: 6 Sit to Stand (QC): 5 Chair/Knd-nw-Bdhue Xfer(QC): 5 Weight Bearing Right Lower Extremity: Right Full Weight Bearing Left Lower Extremity: Left Weight Bearing/Tolerated Gait Training Distance: 250' Walk 10 feet (QC): 5 Walk 50 ft with 2 Turns(QC): 5 Walk 150 ft (QC): 5 Gait Assistive Device: FWW steady, reciprocal pattern Exercises Supine Ex: Ankle pumps, Quad Set, Heel Slides, Straight leg raise Supine Reps: 15 Seated Therapy Exercises: Long arc quads Seated Reps: 16 Assessment Patient continues to lack 15 degrees terminal extension left knee. Patient is progressing with treatment plan and will dismiss to home with spouse and home health tomorrow. Patient instructed to perform written HEP PRN in and out of hospital. PT Usp Goals Certified Ethical Hacker Goals PT Usp Goals Time Frame: Aug 28, 2022 Roll Left & Right (QC): 6 Sit to Lying (QC): 6 Lying-Sitting on Side/Bed(QC): 6 Sit to Stand (QC): 6 Chair/Ekk-pq-Bcofn Xfer(QC): 6 Toilet Transfer (QC): 6 Does the Patient Walk: Yes Walk 10 feet (QC): 6 Walk 50ft with 2 Turns (QC): 6 Walk 150 ft (QC): 6 1 Step (curb) (QC): 4 4 Steps (QC): 4 12 Steps (QC): 4 PT Plan Treatment/Plan Treatment Plan: Continue Plan of Care Treatment Plan: Bed Mobility, Education, Functional Activity Terrie, Functional Strength, Group Therapy, Gait, Safety, Therapeutic Exercise, Transfers Treatment Duration: Aug 28, 2022 Frequency: 11 times per week Estimated Hrs Per Day: .25 hour per day Time Time In: 1315 Time Out: 1341 DATE: Aug 06, 2022 Total Billed Treatment Time: 26 Total Billed Treatment 1 visit EX 15 in GT 11 min BOB MARINELLI PT Aug 06, 2022 14:45
[2022-08-06 15:40] VITALS: BP 149/68
[2022-08-06 19:19] VITALS: BP 148/83
[2022-08-06] MEDS: MELATONIN 10 MG TABLET PO SCH (21:03)
[2022-08-06] MEDS: GABAPENTIN 300 MG (NEURONTIN) CAP PO SCH (21:03)
[2022-08-07 00:02] VITALS: BP 154/82
[2022-08-07] MEDS: oxyCODONE/APAP 5/325MG (PERCOCET 5) TABLET PO PRN ×2 (01:06→06:11)
[2022-08-07 04:08] VITALS: BP 154/76
--- NOTE | 2022-08-07 06:56 | Progress Note ---
Standard Progress Note Progress Notes/Assess & Plan Date Seen by a Provider: Aug 07, 2022 Time Seen by a Provider: 06:46 Progress/Assessment & Plan post op check spinal in effect radiographs--HW well positioned without fracture LLE--2 plus DP pulse with brisk cap refill s/p LTKA mobilize when able Final Diagnosis no complaints Vital Signs Date Time Temp Pulse Resp B/P (MAP) Pulse Ox O2 Delivery O2 Flow Rate FiO2 08/07/22 04:08 36.2 72 18 154/76 (102) 96 Room Air 08/07/22 00:02 36.0 78 18 154/82 (106) 95 Room Air 08/06/22 21:00 Room Air 08/06/22 19:19 36.3 78 19 148/83 (104) 93 Room Air 08/06/22 15:40 36.4 80 19 149/68 (95) 90 Room Air 08/06/22 13:17 36.6 61 18 158/73 92 Room Air 0.00 08/06/22 11:18 36.6 61 18 158/73 (101) 92 Room Air 08/06/22 09:00 92 Room Air 0.00 08/06/22 07:22 36.8 63 18 138/65 (89) 92 Room Air I & O 08/07/22 07:00 Intake Total 2700 ml Balance 2700 ml Laboratory Tests Test 08/07/22 05:32 Range/Units Hemoglobin 11.0 L 11.5-16.0 g/dL Hematocrit 32 L 35-52 % LLE--incision clean and dry no calf tenderness neg dagoberto's flexion to 90 s/p LTKA doing well DC after PT today JOIE MURRAY MD Aug 07, 2022 06:56
[2022-08-07 07:29] VITALS: BP 159/81
--- NOTE | 2022-08-07 07:54 | Physical Therapy Daily Note ---
PT Daily Note-Current Subjective Patient agrees to PT. She reports she slept better last night. Pain Numeric Pain Scale: 5-Moderate Pain Location: Left Location Body Site: Knee Pain Description: Acute Section J - Health Conditions 1. Rarely or not at all 2. Occasionally 3. Frequently 4. Almost constantly 8. Unable to answer Pain Effect on Sleep: 1 Pain Interference with Therapy: 1 Pain Interference w/Day-to-Day: 1 Mental Status Patient Orientation: Normal For Age Transfers SCALE: Activities may be completed with or without assistive devices. 6-Nkkhhjhuck-adwcyru completes the activity by him/herself with no assistance from a helper. 5-Set-up or Clean-up Assistance-helper sets up or cleans up; patient completes activity. [place] assists only prior to or following the activity. 4-Supervision or Touching Assistance-helper provides verbal cues and/or touching/steadying and/or contact guard assistance as patient completes activity. Assistance may be provided throughout the activity or intermittently. 3-Partial/Moderate Assistance-helper does LESS THAN HALF the effort. [place] lifts, holds or supports trunk or limbs, but provides less than half the effort. 2-Substantial/Maximal Assistance-helper does MORE THAN HALF the effort. [place] lifts or holds trunk or limbs and provides more than half the effort. 7-Msrevovwo-nyyfbr does ALL the effort. Patient does none of the effort to complete the activity. Or, the assistance of 2 or more helpers is required for the patient to complete the activity. If activity was not attempted, code reason: 7-Patient Refused. 9-Not Applicable-not attempted and the patient did not perform the activity before the current illness, exacerbation or injury. 10-Not Attempted due to Environmental Limitations-(lack of equipment, weather restraints, etc.). 88-Not Attempted due to Medical Conditions or Safety Concerns. Sit to Stand (QC): 6 Weight Bearing Right Lower Extremity: Right Full Weight Bearing Left Lower Extremity: Left Weight Bearing/Tolerated Gait Training Distance: 300' Walk 10 feet (QC): 6 Walk 50 ft with 2 Turns(QC): 6 Walk 150 ft (QC): 6 Gait Assistive Device: FWW steady, reciprocal pattern Stair Training Stair Training: Handrails/: 2 handrails #of Steps: 4 1 Step (curb) (QC): 6 4 Steps (QC): 6 Stairs: Pattern: Step to Exercises Supine Ex: Ankle pumps, Quad Set, Heel Slides Supine Reps: 15 Seated Therapy Exercises: Long arc quads Seated Reps: 15 Assessment Patient continues to lack ~15 degrees left knee extension. Patient left knee flexion 90 degrees AROM. Patient to dismiss to home on this date and instructed to perform HEP issued at preop 2-3/day at 15 reps each. Patient voices understanding. PT Senior Software Qa Analyst Goals Senior Software Qa Analyst Goals PT Senior Software Qa Analyst Goals Time Frame: Aug 28, 2022 Roll Left & Right (QC): 6 Sit to Lying (QC): 6 Lying-Sitting on Side/Bed(QC): 6 Sit to Stand (QC): 6 Chair/Hze-sy-Gykbp Xfer(QC): 6 Toilet Transfer (QC): 6 Does the Patient Walk: Yes Walk 10 feet (QC): 6 Walk 50ft with 2 Turns (QC): 6 Walk 150 ft (QC): 6 1 Step (curb) (QC): 4 4 Steps (QC): 4 12 Steps (QC): 4 PT Plan Treatment/Plan Treatment Plan: Discontinue PT Treatment Plan: Bed Mobility, Education, Functional Activity Terrie, Functional Strength, Group Therapy, Gait, Safety, Therapeutic Exercise, Transfers Treatment Duration: Aug 28, 2022 Frequency: 11 times per week Estimated Hrs Per Day: .25 hour per day Time Time In: 715 Time Out: 740 DATE: Aug 07, 2022 Total Billed Treatment Time: 25 Total Billed Treatment 1 visit EX 10 min FA 15 min BOB MARINELLI PT Aug 07, 2022 07:54
[2022-08-07] MEDS: ENOXAPARIN INJECTION 30 MG/0.3 ML SYR SC SCH (08:42)
[2022-08-07] MEDS: ASPIRIN E.C. 81 MG (ECOTRIN) TAB PO SCH (08:42)
[2022-08-07] MEDS: SENNA W/DOCUSATE (SENOKOT S) TABLET PO SCH (08:43)
[2022-08-07] MEDS: DOCUSATE SODIUM 100 MG (COLACE) CAP PO SCH (08:43)
[2022-08-07] MEDS: PANTOPRAZOLE 20 MG TABLET (PROTONIX) PO SCH (08:43)
[2022-08-07] MEDS: NS IV 1000 ML 1,000 ML IV SCH (08:49)
[2022-08-07] MEDS: FLECAINIDE 100 MG (TAMBOCOR) TAB PO SCH (08:51)
--- NOTE | 2022-08-07 10:57 | Progress Note - Hospitalist ---
Subjective HPI/CC On Admission Date Seen by Provider: Aug 07, 2022 Time Seen by Provider: 10:20 Gabbi Noble is a 62 year old female with PMH AFib, GERD, obesity, osteoarthritis, who presented for a scheduled total knee arthroplasty. She was seen post-operatively. She denies pain. She has no other complaints or concerns at this time. She has a history of AFib. She took her Flecainide this morning. She has not been taking her Eliquis. She is feeling thirsty. She has not been up with therapy yet. Subjective/Events-last exam She is feeling better. She has been walking with therapy. She has no complaints. Objective Exam Vital Signs Vital Signs Date Time Temp Pulse Resp B/P (MAP) Pulse Ox O2 Delivery O2 Flow Rate FiO2 08/07/22 09:05 Room Air 08/07/22 07:29 36.7 73 18 159/81 (107) 95 08/06/22 13:17 0.00 Capillary Refill : General Appearance: No Apparent Distress, Obese Respiratory: No Accessory Muscle Use, No Respiratory Distress Gastrointestinal: No Distended Extremity: Normal Inspection, Swelling Neurologic/Psychiatric: Alert, Normal Mood/Affect Skin: Normal Color Results/Procedures Lab Laboratory Tests 08/07/22 05:32 Patient resulted labs reviewed. Imaging: Reviewed Imaging Report Assessment/Plan Assessment and Plan Assess & Plan/Chief Complaint s/p TKA Osteoarthritis AFib GERD Obesity [place] primary Stable for discharge Resume home meds Diagnosis/Problems Diagnosis/Problems (1) Osteoarthritis of left knee Status: Acute Qualifiers: Osteoarthritis type: primary Qualified Codes: M17.12 - Unilateral primary osteoarthritis, left knee (2) S/P total knee arthroplasty Status: Acute Qualifiers: Laterality: left Qualified Codes: Z96.652 - Presence of left artificial knee joint (3) Afib Status: Chronic (4) GERD (gastroesophageal reflux disease) Status: Chronic (5) Obesity Status: Chronic PAPI BELLO MD Aug 07, 2022 10:57
[2022-08-07 11:20] VITALS: BP 159/81
--- NOTE | 2022-08-08 01:10 | DISCHARGE SUMMARY ---
DIAGNOSES: 1. Left knee primary osteoarthritis. 2. Asthma. 3. History of nephrolithiasis. 4. History of atrial fibrillation. PROCEDURE: Left total knee arthroplasty. SUMMARY: The patient is a 62-year-old female who underwent a left total knee arthroplasty on the day of admission. Postoperatively, she did well. At time of discharge, her wound was clean and dry. She had no calf tenderness. Negative Homans sign. She was tolerating diet well and tolerating pain with oral pain medication. CONDITION AT DISCHARGE: Good. DISCHARGE DIET: Regular. Followup is in 3 weeks. ACTIVITIES: Weightbearing as tolerated with a walker. Home physical therapy will be arranged. DISCHARGE MEDICATIONS: Home medications, tramadol as needed for pain, Percocet for breakthrough pain, Celebrex and Tylenol. Job ID: [id number] DocumentID: [id number] Dictated Date: 08/07/2022 07:01:43 Film Replacement Orderer Date: 08/08/2022 01:09:00 Dictated By: JOIE MURRAY MD
== END 2022-08-07 11:23 | disposition home health service (06) | DRG 470 ==
LOC: 4TH 06:11 → SURG 06:14 → 4TH 10:00
PROVIDERS: ADMIT Orthopaedic Surgery; ATTEND Orthopaedic Surgery
PROC: 0SRD0J9 Replacement of Left Knee Joint with Synthetic Substitute, Cemented, Open Approach (ICD-10-PCS; principal; 2022-08-05 07:33)
DX: M17.12 Unilateral primary osteoarthritis, left knee (principal); J45.909 Unspecified asthma, uncomplicated; I48.91 Unspecified atrial fibrillation; J44.9 Chronic obstructive pulmonary disease, unspecified; E66.9 Obesity, unspecified; K58.9 Irritable bowel syndrome, unspecified; K21.9 Gastro-esophageal reflux disease without esophagitis; Z68.38 Body mass index [BMI] 38.0-38.9, adult
CPT/HCPCS: 36415; 73560; 85014; 85018; 86850; 86900; 86901; 94664